=== PATIENT | male | born 1950 | race Asian ===

== ENCOUNTER 2018-05-27 07:00 | Day surgery (SDC) | payer OTHER, MEDICAID ==
[~2018-05-27] VITALS: Ht 175.3 cm; Wt 63.5 kg
[2018-05-27] MEDS ORDERED: SIMETHICONE 40 MG/0.6 ML ML ONE (07:30)
[2018-05-27] MEDS: MIDAZOLAM HCL 5 MG/5 ML VIAL ONE ×2 (08:57→09:00)
[2018-05-27] MEDS: MEPERIDINE HCL/PF 100 MG/ML AMP ONE ×2 (08:57→09:00)
[2018-05-27 13:18] VITALS: BP_SYST 139
== END 2018-05-27 10:25 | disposition home or self-care (01) ==
LOC: SMU 07:00 → SDS 07:00
PROVIDERS: ATTEND Internal Medicine Gastroenterology
DX: Z12.11 Encounter for screening for malignant neoplasm of colon (principal); D12.2 Benign neoplasm of ascending colon; D12.5 Benign neoplasm of sigmoid colon; D12.4 Benign neoplasm of descending colon; K64.8 Other hemorrhoids; R19.4 Change in bowel habit; E78.5 Hyperlipidemia, unspecified; I10 Essential (primary) hypertension; Z79.82 Long term (current) use of aspirin
CPT/HCPCS: 45385; 88305; J2175; J2250; 45384